=== PATIENT | female | born 1990 | race Caucasian/White ===

== ENCOUNTER 2023-04-29 12:09 | Emergency (ER) | payer BC, SELFPAY ==
[2023-04-29 12:13] VITALS: BP 136/92; PULSE 109; RESP 18; TEMP 36.6; O2SAT 100; BMI 28.4
--- NOTE | 2023-04-29 12:24 | ED.GENADUL1 ---
HPI - General Adult General Chief complaint: Skin/Abscess/Foreign Body Stated complaint: WOUND Time Seen by Provider: 04/29/23 12:15 Source: patient Mode of arrival: walk-in Limitations: no limitations History of Present Illness HPI narrative: 32-year-old female presents for several areas of an infection. She has a history of eczema and she saw her family doctor and then she saw a cash controller. She was prescribed Paxil and which came in the mail but she hasn't started it yet. She was put on a twenty-one day course of the steroid. It seemed to be getting better but now has gotten worse and there is been some drainage from her left axilla and the left side of her face. No fever. Related Data Previous Rx's Medication Instructions Recorded cephalexin 500 mg capsule 500 mg PO QID 10 days #40 caps 04/29/23 hydrocodone 5 mg-acetaminophen 325 1 tab PO Q6H PRN pain 5 days #20 04/29/23 mg tablet tabs sulfamethoxazole 800 1 tab PO BID 10 days #20 tabs 04/29/23 mg-trimethoprim 160 mg tablet (Bactrim DS) Allergies Allergy/AdvReac Type Severity Reaction Status Date / Time No Known Drug Allergies Allergy Verified 04/29/23 12:13 Review of Systems ROS Narrative A ten point review of systems is negative except as noted above. Exam Narrative Exam Narrative: Nurses note and vital signs reviewed and patient is not hypoxic. General: The patient appears well and in no apparent distress. Patient is resting comfortably on cart. Skin: Warm, dry, no pallor noted. his erythema and some open areas with drainage in the left axilla. On her abdomen or three areas of excoriation and some erythema. On the left side of her face is a firm raised area approximately 2 cm in diameter which is draining a small amount of purulent material. Head: Normocephalic, atraumatic Eye: Normal conjunctiva, no drainage Ears, Nose, Mouth, and Throat: oral mucosa is moist. Nares patent. Cardiovascular: Regular Rate and Rhythm Respiratory: Patient is in no distress, no accessory muscle use, lungs are clear to auscultation, no wheezing, rales or rhonchi Back: non-tender GI: abdomen nontender, see above for skin findings Musculoskeletal: The patient has no evidence of calf tenderness, no pitting edema, symmetrical pulses noted bilaterally Neurological: A&O, normal speech Psychiatric: Cooperative Constitutional Vital Signs, click to edit/add: Last Vital Signs Temp 97.8 F 04/29/23 12:13 Pulse 109 H 04/29/23 12:13 Resp 18 04/29/23 12:13 BP 136/92 H 04/29/23 12:13 Pulse Ox 100 04/29/23 12:13 O2 Del Method Room Air 04/29/23 12:13 Course Vital Signs Vital signs: Vital Signs Temperature 97.8 F 04/29/23 12:13 Pulse Rate 109 H 04/29/23 12:13 Respiratory Rate 18 04/29/23 12:13 Blood Pressure 136/92 H 04/29/23 12:13 Pulse Oximetry 100 04/29/23 12:13 Oxygen Delivery Method Room Air 04/29/23 12:13 Temperature 97.8 F 04/29/23 12:13 Pulse Rate 109 H 04/29/23 12:13 Respiratory Rate 18 04/29/23 12:13 Blood Pressure 136/92 H 04/29/23 12:13 Pulse Oximetry 100 04/29/23 12:13 Oxygen Delivery Method Room Air 04/29/23 12:13 Medical Decision Making MDM Narrative Medical decision making narrative: the patient was given IV vancomycin and is discharged home on Keflex and Bactrim with culture pending. She is also provided [place]. Incision and drainage is not indicated at this point. Treatment diagnosis and follow-up were discussed with the patient. Differential Diagnosis Differential Diagnosis: abscess, cellulitis Lab Data Lab results reviewed: Yes I reviewed the patient's lab results Labs: Lab Results 04/29/23 Range/Units 12:30 WBC 16.7 H (4.0-11.0) 10^3/uL RBC 3.99 L (4.20-5.40) 10^6/uL Hgb 11.2 L (12.0-16.0) g/dL Hct 35.6 L (36.0-48.0) % MCV 89.2 (81.0-99.0) fL MCH 28.1 (26.7-34.0) pg MCHC 31.5 (29.9-35.2) g/dL RDW 14.0 (11.0-15.0) % Plt Count 234 (150-450) 10^3/uL MPV 10.9 (9.5-13.5) fL Neut % (Auto) 82.0 H (43.0-75.0) % Lymph % (Auto) 8.4 L (20.5-60.0) % [place] % (Auto) 8.1 (1.7-12.0) % Eos % (Auto) 0.7 L (0.9-7.0) % Baso % (Auto) 0.4 (0.2-2.0) % Neut # (Auto) 13.7 H (1.4-6.5) 10^3/uL Lymph # (Auto) 1.4 (1.2-3.8) 10^3/uL [place] # (Auto) 1.4 H (0.3-0.8) 10^3/uL Eos # (Auto) 0.1 (0.0-0.7) 10^3/uL Baso # (Auto) 0.1 (0.0-0.1) 10^3/uL Abs Immat Gran (auto) 0.06 H (0.00-0.03) 10^3/uL Imm/Tot Granulo (auto) 0.4 (0.0-0.5) % Sodium 137 (136-145) mmol/L Potassium 3.9 (3.5-5.1) mmol/L Chloride 101 (98-107) mmol/L Carbon Dioxide 28.3 (21.0-32.0) mmol/L Anion Gap 11.6 BUN 12.0 (7.0-18.0) mg/dL Creatinine 0.68 (0.55-1.02) mg/dL Est GFR ( Amer) >60 (>=60) Est GFR (Non-Af Amer) >60 (>=60) BUN/Creatinine Ratio 17.6 Glucose 88 (74-106) mg/dL Calcium 8.6 (8.5-10.1) mg/dL Discharge Plan Discharge Chief Complaint: Skin/Abscess/Foreign Body Clinical Impression: Abscess of skin or subcutaneous tissue, Cellulitis Patient Disposition: Home, Self-Care Time of Disposition Decision: 14:58 Condition: Good Mode of Transportation: Private Vehicle Prescriptions / Home Meds: New hydrocodone-acetaminophen 5-325 mg tablet 1 tab PO Q6H PRN (Reason: pain) 5 Days Qty: 20 0RF sulfamethoxazole-trimethoprim [Bactrim DS] 800-160 mg tablet 1 tab PO BID 10 Days Qty: 20 0RF cephalexin 500 mg capsule 500 mg PO QID 10 Days Qty: 40 0RF Instructions: Cellulitis (ED), Abscess (ED), Warm Compress or Soak (ED) Additional Instructions: follow-up with your cash controller Stand Alone Forms: Portal Instructions Referrals: Physician,Non-Staff, MD [Primary Care Provider] - 1 week
--- NOTE | 2023-04-29 12:34 | PC.NURSE ---
Pt skin abscesses all over. 1 L cheek 3 on upper abdomen 1 L armpit wound cx taken from L cheek per physician order. has just finished round on steroids.
[2023-04-29 12:38] LABS: Basophils Absolute Auto 0.1 10^3/uL (0.0-0.1); Basophils Percent Auto 0.4 % (0.2-2.0); Eosinophils Absolute Auto 0.1 10^3/uL (0.0-0.7); Eosinophils Percent Auto 0.7 % (0.9-7.0); Hematocrit 35.6 % (36.0-48.0); Hemoglobin 11.2 g/dL (12.0-16.0); Immature Granulocytes Abs Auto 0.06 10^3/uL (0.00-0.03); Immature Granulocytes Pct Auto 0.4 % (0.0-0.5); Lymphocytes Absolute Auto 1.4 10^3/uL (1.2-3.8); Lymphocytes Percent Auto 8.4 % (20.5-60.0); Mean Corpuscular HGB Conc 31.5 g/dL (29.9-35.2); Mean Corpuscular Hemoglobin 28.1 pg (26.7-34.0); Mean Corpuscular Volume 89.2 fL (81.0-99.0); Mean Platelet Volume 10.9 fL (9.5-13.5); Monocytes Absolute Auto 1.4 10^3/uL (0.3-0.8); Monocytes Percent Auto 8.1 % (1.7-12.0); Neutrophils Absolute Auto 13.7 10^3/uL (1.4-6.5); Platelet Count 234 10^3/uL (150-450); Red Blood Count 3.99 10^6/uL (4.20-5.40); White Blood Count 16.7 10^3/uL (4.0-11.0)
[2023-04-29] MEDS: VANCOMYCIN HCL 1,250 MG in 0.9 % SODIUM CHLORIDE 500 ML 333.333 MG IV (12:44)
[2023-04-29 12:46] LABS: Anion Gap 11.6; BUN Creatinine Ratio 17.6; Calcium 8.6 mg/dL (8.5-10.1); Carbon Dioxide 28.3 mmol/L (21.0-32.0); Chloride 101 mmol/L (98-107); Estimated GFR (African America >60 (>=60); Estimated GFR (Non-African Ame >60 (>=60); Glucose 88 mg/dL (74-106); Potassium 3.9 mmol/L (3.5-5.1); Sodium 137 mmol/L (136-145)
[2023-04-29] MEDS: MORPHINE SULFATE 4 MG/ML VIAL IV (13:43)
[2023-04-29 15:11] VITALS: BP 93/62; PULSE 87; O2SAT 98
== END 2023-04-29 15:12 | disposition home or self-care (01) ==
PROVIDERS: Emergency Provider Emergency Medicine
DX: L02.91 Cutaneous abscess, unspecified (principal); L03.90 Cellulitis, unspecified
CPT/HCPCS: 36415; 80048; 85025; 87070; 87150; 87186; 96365; 96366; 96375; 99285; J3370

== ENCOUNTER 2024-04-25 10:44 | Outpatient (OUT) | payer OTHER, SELFPAY ==
[2024-04-25 11:08] LABS: Basophils Percent Auto 0.3 % (0.2-2.0); Eosinophils Absolute Auto 0.1 10^3/uL (0.0-0.7); Hematocrit 36.4 % (36.0-48.0); Hemoglobin 12.2 g/dL (12.0-16.0); Immature Granulocytes Abs Auto 0.06 10^3/uL (0.00-0.03); Immature Granulocytes Pct Auto 0.6 % (0.0-0.5); Lymphocytes Absolute Auto 1.2 10^3/uL (1.2-3.8); Mean Corpuscular HGB Conc 33.5 g/dL (29.9-35.2); Mean Corpuscular Volume 92.6 fL (81.0-99.0); Mean Platelet Volume 11.5 fL (9.5-13.5); Monocytes Absolute Auto 0.5 10^3/uL (0.3-0.8); Monocytes Percent Auto 4.9 % (1.7-12.0); Neutrophils Absolute Auto 8.4 10^3/uL (1.4-6.5); Neutrophils Percent Auto 81.2 % (43.0-75.0); Platelet Count 174 10^3/uL (150-450); Red Blood Count 3.93 10^6/uL (4.20-5.40); Red Cell Distribution Width 12.7 % (11.0-15.0); White Blood Count 10.3 10^3/uL (4.0-11.0)
[2024-04-25 11:58] LABS: Percent Iron Saturation 19.5 %
== END 2024-04-25 10:45 | disposition home or self-care (01) ==
LOC: LAB 10:49
DX: O26.812 Pregnancy related exhaustion and fatigue, second trimester (principal)
CPT/HCPCS: 36415; 82728; 83540; 83550; 85025